=== PATIENT | female | born 1990 | race Caucasian/White ===

== ENCOUNTER → 2017-09-09 | Outpatient (CLI) | payer BC ==
[~2017-09-09] MED LIST: LORTAB 5/500 501 TAB PO; NO HOME MEDICATIONS
== END ==
LOC: MC.RAD 10:00
DX: N63.11 Unspecified lump in the right breast, upper outer quadrant (principal)

== ENCOUNTER → 2021-07-22 | Outpatient (CLI) | payer OTHER | LOC: COL.RAD 06:38 | DX: R10.13 Epigastric pain (principal); R11.12 Projectile vomiting ==